=== PATIENT | female | born 1990 | race Caucasian/White ===

== ENCOUNTER 2016-11-14 18:05 | Emergency (ER) | payer SELFPAY ==
[2016-11-14] MEDS ORDERED: Ketorolac Tromethamine 30 MG/ML VIAL ONE (18:24)
[2016-11-14] MEDS ORDERED: Ondansetron ODT 4 MG TAB ONE (18:24)
[2016-11-14] MEDS ORDERED: traMADol HCl 50 MG TAB ONE (18:24)
[2016-11-14] MEDS ORDERED: Ketorolac Tromethamine 60 MG/2 ML VIAL ONE (18:24)
--- NOTE | 2016-11-14 18:42 | RAD ---
THREE VIEWS OF THE LEFT SHOULDER COMPARISON: None. HISTORY: Left shoulder injury with pain. FINDINGS: Three views left shoulder shows no evidence of acute fracture or dislocation. No degenerative change s are seen. The visualized left thorax is unremarkable. IMPRESSION: Unremarkable exam. POS: [facility]
== END 2016-11-14 18:58 | disposition home or self-care (01) ==
LOC: MADERS 18:05
DX: S43.402A Unspecified sprain of left shoulder joint, initial encounter (principal); F41.9 Anxiety disorder, unspecified; F32.9 Major depressive disorder, single episode, unspecified; W18.30XA Fall on same level, unspecified, initial encounter
CPT/HCPCS: 96372; J1885; Q0162

== ENCOUNTER 2016-12-20 22:03 | Emergency (ER) | payer MEDICAID, SELFPAY ==
[2016-12-20 22:34] LABS: Bilirubin Negative (Negative); Blood, Urine Moderate (Negative); Glucose, Urine (Dipstick) Negative (Negative); Leukocyte Negative (Negative); Nitrite Negative (Negative); Protein, Urine (Dipstick) 100 mg/dL (Neg-Trace); Urobilinogen 0.2 mg/dL (0.2-1.0)
[2016-12-20 22:40] LABS: Clarity Hazy (Clear); Specific Gravity, Urine 1.029 (1.002-1.036)
[2016-12-20 22:42] LABS: Bacteria/HPF 2+ HPF (None Seen); Yeast-All Forms Rare HPF (None Seen)
[2016-12-20] MEDS ORDERED: Naproxen 500 MG TAB ONE (22:50)
[2016-12-20] MEDS ORDERED: HYDROcodone/Acetaminophen 10/325 mg Tablet ONE (22:50)
[2016-12-20] MEDS ORDERED: Ondansetron ODT 4 MG TAB ONE (22:50)
[2016-12-20] MEDS ORDERED: Sulfameth/Trimethoprim DS 800-160mg TAB ONE (22:50)
== END 2016-12-20 22:57 | disposition home or self-care (01) ==
LOC: MADERS 22:03
DX: N39.0 Urinary tract infection, site not specified (principal); F41.9 Anxiety disorder, unspecified; F32.9 Major depressive disorder, single episode, unspecified; F17.210 Nicotine dependence, cigarettes, uncomplicated
CPT/HCPCS: 81001; 87086; 99283; Q0162